=== PATIENT | male | born 1935 | race Asian ===

== ENCOUNTER 2017-12-26 14:39 | Inpatient (IN) | payer OTHER ==
[~2017-12-26] VITALS: Ht 165.1 cm; Wt 63.5 kg
[2017-12-26] MEDS ORDERED: Solu-MEDROL 125mg Inj IVP ONE (14:45)
--- NOTE | 2017-12-26 14:54 | Emergency Room Report ---
History of Present Illness General Chief Complaint: Generalized Weakness Source: Patient, Family Member, EMS Present Illness HPI 82-year-old male, history of asthma, hypertension, throat cancer currently only on radiation, presenting with dizziness, weakness, low blood pressure, shortness of breath. Patient's daughter at bedside, states that patient became acutely ill today, he was supposed to get an MRI to evaluate his throat, and then suddenly just was too weak to get out of the chair. Did not syncopized or lose consciousness. EMS arrived and noted patient's blood pressure to be low, 80/40, which improved with 500 mL of normal saline. Patient also noted to be wheezing, daughter states that he used nebulizer twice today. Patient cleaning of generalized weakness, shortness of breath. No chest pain no abdominal pain. Also complaining of his mild chronic throat pain. Patient states that he has chronic dysphagia however he is still able to eat and drink Patient's daughter states that [facility] Allergies: Coded Allergies: No Known Allergies (Unverified , 12/26/17) Patient History Past Medical History: see triage record Past Surgical History: none Pertinent Family History: none Reviewed Nursing Documentation: PMH: Agreed; PSxH: Agreed Nursing Documentation-PMH Past Medical History: No History, Except For Hx Hypertension: Yes Hx Asthma: Yes Hx Cancer: Yes - THROAT AND PROSTATE Review of Systems All Other Systems: negative except mentioned in HPI Physical Exam Vital Signs Date Time Temp Pulse Resp B/P (MAP) Pulse Ox O2 Delivery O2 Flow Rate FiO2 12/26/17 14:34 110 20 83/52 99 Room Air Sp02 EP Interpretation: abnormal General Appearance: alert, GCS 15, moderate distress, other - sob but speaking in complete sentences, appears tired Head: normocephalic, atraumatic Eyes: bilateral eye normal inspection, bilateral eye PERRL, bilateral eye EOMI ENT: normal ENT inspection, normal pharynx, normal voice, moist mucus membranes Neck: normal inspection, full range of motion, supple Respiratory: respiratory distress, speaking full sentences, wheezing, expiration Cardiovascular #1: tachycardia, edema Cardiovascular #2: 2+ radial (R), 2+ radial (L) Gastrointestinal: normal inspection, non tender, soft, non-distended, no guarding Musculoskeletal: normal inspection, back normal, normal range of motion, non- tender Neurologic: normal inspection, alert, oriented x3, responsive, service establishment attendant III-XII nml as tested, motor strength/tone normal, sensory intact, speech normal Psychiatric: normal inspection, judgement/insight normal, memory normal Skin: normal inspection, normal color, no rash, warm/dry, well hydrated, normal turgor Procedures Critical Care Time Critical Care Time 40 minutes of CC time 82-year-old male with shortness of breath, dizziness VS: Hypotensive tachycardic and hypoxic Differential diagnosis includes ACS, dehydration, COPD or asthma exacerbation, sepsis PLAN: IV access, labs, lactate, troponin, Blood/Urine Cx, Abx, IVF Anticipate admission to Tele vs. [facility] CC time also includes review of labs, review of EMR, discussion with family and paperwork from SNF, d/w hospitalist CC could include dosing of pressors, additional Abx CC time does not include procedures Medical Decision Making Diagnostic Impression: Primary Impression: Asthma exacerbation Additional Impressions: Generalized weakness Renal insufficiency Dehydration ER Course 82-year-old male, weakness and dizziness for 1 day, also found to be wheezing DDX: Dehydration, electrolyte disturbance, sepsis, UTI, pneumonia, asthma/COPD exacerbation, ACS Plan: Obtain labs, ua, EKG, CXR Fluids ER course: Patient giving nebulizer 3, initially hypoxic at 90 on room air now breathing more comfortably, RR 20s given fluids for dehydration renal failure noted given fluids Disposition: Patient is to be xferred to [facility], Dr Martinez Please note that this Emergency Department Report was dictated using [employer] technology software, occasionally this can lead to erroneous entry secondary to interpretation by the dictation equipment. EKG Diagnostic Results EP Interpretation: Yes Rate: Tachycardic Rhythm: NSR ST Segments: No acute changes ASA given to patient: No Rhythm Strip EP Interpretation: Yes Rate: 105 Rhythm: NSR, no PVCs, no ectopy Chest X-ray CXR: Ordered: Yes 1 view Indication: Shortness of breath EP interpretation: Yes Interpretation: No consolidation, no effusion, no PTX, no acute cardiopulmonary disease Impression: No acute disease Electronically signed by Ignacio Connell MD Laboratory Tests Test 12/26/17 14:45 12/26/17 16:37 White Blood Count 6.8 K/UL (4.8-10.8) Red Blood Count 3.38 M/UL (4.70-6.10) L Hemoglobin 10.5 G/DL (14.2-18.0) L Hematocrit 30.0 % (42.0-52.0) L Mean Corpuscular Volume 89 FL (80-99) Mean Corpuscular Hemoglobin 31.1 PG (27.0-31.0) H Mean Corpuscular Hemoglobin Concent 35.0 G/DL (32.0-36.0) Red Cell Distribution Width 13.9 % (11.6-14.8) Platelet Count 350 K/UL (150-450) Mean Platelet Volume 5.2 FL (6.5-10.1) L Neutrophils (%) (Auto) 80.4 % (45.0-75.0) H Lymphocytes (%) (Auto) 11.6 % (20.0-45.0) L Monocytes (%) (Auto) 7.2 % (1.0-10.0) Eosinophils (%) (Auto) 0.2 % (0.0-3.0) Basophils (%) (Auto) 0.6 % (0.0-2.0) Prothrombin Time 10.1 SEC (9.30-11.50) Prothrombin Time INR 1.0 (0.9-1.1) PTT 25 SEC (23-33) Sodium Level 140 MMOL/L (136-145) Potassium Level 4.4 MMOL/L (3.5-5.1) Chloride Level 104 MMOL/L (98-107) Carbon Dioxide Level 30 MMOL/L (21-32) Anion Gap 7 mmol/L (5-15) Blood Urea Nitrogen 30 mg/dL (7-18) H Creatinine 2.1 MG/DL (0.55-1.30) H Estimate Glomerular Filtration Rate mL/min (>60) Glucose Level 139 MG/DL (74-106) H Lactic Acid Level 0.90 mmol/L (0.66-2.22) Calcium Level 9.2 MG/DL (8.5-10.1) Total Bilirubin 0.5 MG/DL (0.2-1.0) Aspartate Amino Transferase (AST) 40 U/L (15-37) H Alanine Aminotransferase (ALT) 22 U/L (12-78) Alkaline Phosphatase 102 U/L (46-116) Troponin I 0.011 ng/mL (0.000-0.056) Pro-B-Type Natriuretic Peptide 480 pg/mL (0-125) H Total Protein 6.8 G/DL (6.4-8.2) Albumin 3.1 G/DL (3.4-5.0) L Globulin 3.7 g/dL Albumin/Globulin Ratio 0.8 (1.0-2.7) L Urine Color Yellow Urine Appearance Clear Urine pH 5 (4.5-8.0) Urine Specific [place] 1.015 (1.005-1.035) Urine Protein 3+ (NEGATIVE) H Urine Glucose (UA) Negative (NEGATIVE) Urine Ketones Negative (NEGATIVE) Urine Occult Blood 1+ (NEGATIVE) H Urine Nitrite Negative (NEGATIVE) Urine Bilirubin Negative (NEGATIVE) Urine Urobilinogen Normal MG/DL (0.0-1.0) Urine Leukocyte Esterase 1+ (NEGATIVE) H Urine RBC 0-2 /HPF (0 - 0) H Urine WBC 0-2 /HPF (0 - 0) Urine Squamous Epithelial Cells None /LPF (NONE/OCC) Urine Bacteria Few /HPF (NONE) Last Vital Signs Date Time Temp Pulse Resp B/P (MAP) Pulse Ox O2 Delivery O2 Flow Rate FiO2 12/26/17 14:34 110 20 83/52 99 Room Air [facility] Condition: Serious RetinoIgnacio M.D. Dec 26, 2017 14:54
[2017-12-26] MEDS: Ipratropium 0.02% Inh Soln 2.5ml UD HHN SCH ×3 (15:01→15:22)
[2017-12-26] MEDS: Albuterol ud Inhalation HHN SCH ×3 (15:01→15:21)
[2017-12-26 15:03] LABS: BASOPHILS % (AUTO) 0.6 % (0.0-2.0); EOSINOPHILS % (AUTO) 0.2 % (0.0-3.0); HEMOGLOBIN 10.5 G/DL (14.2-18.0); LYMPHOCYTES % (AUTO) 11.6 % (20.0-45.0); MEAN CORPUSCULAR VOLUME 89 FL (80-99); MONOCYTES % (AUTO) 7.2 % (1.0-10.0); NEUTROPHILS % (AUTO) 80.4 % (45.0-75.0); PLATELET COUNT 350 K/UL (150-450); RED BLOOD COUNT 3.38 M/UL (4.70-6.10); RED CELL DISTRIBUTION WIDTH 13.9 % (11.6-14.8); WHITE BLOOD COUNT 6.8 K/UL (4.8-10.8)
[2017-12-26 15:10] LABS: ANION GAP 7 mmol/L (5-15); BLOOD UREA NITROGEN 30 mg/dL (7-18); CALCIUM 9.2 MG/DL (8.5-10.1); CARBON DIOXIDE 30 MMOL/L (21-32); CHLORIDE 104 MMOL/L (98-107); CREATININE 2.1 MG/DL (0.55-1.30); POTASSIUM 4.4 MMOL/L (3.5-5.1); SODIUM 140 MMOL/L (136-145)
[2017-12-26 15:11] VITALS: BP 134/65
[2017-12-26 15:21] LABS: ALANINE AMINOTRANSFERASE 22 U/L (12-78); ALBUMIN 3.1 G/DL (3.4-5.0); ALBUMIN/GLOBULIN RATIO 0.8 (1.0-2.7); ALKALINE PHOSPHATASE 102 U/L (46-116); ASPARTATE AMINO TRANSFERASE 40 U/L (15-37); BILIRUBIN,TOTAL 0.5 MG/DL (0.2-1.0)
--- NOTE | 2017-12-26 15:21 | Diagnostic Imaging Report ---
Indication: Dyspnea Comparison: None A single view chest radiograph was obtained. Findings: Lungs are clear. Heart size is normal. Aorta is mildly enlarged with calcified. Bones are slightly osteopenic. IMPRESSION: No acute disease
[2017-12-26] MEDS ORDERED: FLUPHENAZINE DECANOATE IM (16:24)
[2017-12-26] MEDS ORDERED: FERROUS SULFAT325 MG ORAL (16:24)
[2017-12-26] MEDS ORDERED: DOCUSATE SODIU100 MG ORAL (16:24)
[2017-12-26] MEDS ORDERED: QUETIAPINE FUM400 MG ORAL (16:24)
[2017-12-26] MEDS ORDERED: DEPAKOTE250 MG PO (16:24)
[2017-12-26] MEDS ORDERED: FLUOXETINE HCL20 MG ORAL (16:24)
[2017-12-26 17:05] LABS: APPEARANCE,URINE CLEAR; BILIRUBIN, URINE NEGATIVE (NEGATIVE); GLUCOSE, URINE (UA) NEGATIVE (NEGATIVE); KETONES,URINE NEGATIVE (NEGATIVE); LEUKOCYTE ESTERASE ,URINE 1+ (NEGATIVE); NITRITE,URINE NEGATIVE (NEGATIVE); PH,URINE 5 (4.5-8.0); PROTEIN,URINE 3+ (NEGATIVE); UROBILINOGEN,URINE NORMAL MG/DL (0.0-1.0)
[2017-12-26 17:11] LABS: COLOR,URINE YELLOW
[2017-12-26] MEDS ORDERED: LISINOPRIL40 MG ORAL (17:59)
[2017-12-26] MEDS ORDERED: SPIRIVA18 MCG INH (17:59)
[2017-12-26] MEDS ORDERED: BICALUTAMIDE50 MG ORAL (17:59)
[2017-12-26] MEDS ORDERED: TAMSULOSIN HCL0.4 MG ORAL (17:59)
[2017-12-26] MEDS ORDERED: METOPROLOL SUCC25 MG ORAL (17:59)
[2017-12-26] MEDS ORDERED: PROSCAR5 MG ORAL (17:59)
[2017-12-26] MEDS ORDERED: AMLODIPINE BESY10 MG ORAL (17:59)
[2017-12-26] MEDS ORDERED: VENTOLIN HFA18 GM INH (17:59)
[2017-12-26 18:08] VITALS: BP 107/45
[2017-12-26 19:22] VITALS: BP 110/44
[2017-12-26 20:57] VITALS: BP 115/44
[2017-12-27] VITALS (8 sets, daily range): BP systolic 115–149; BP diastolic 58–65
[2017-12-27] MEDS ORDERED: Miralax 17gm pkt ORAL PRN (06:30)
[2017-12-27] MEDS ORDERED: Morphine Sulfate 4mg/ml Inj IVP PRN ×2 (06:30→18:30)
[2017-12-27] MEDS ORDERED: Nitroglycerin Subl 0.4mg tab SL PRN ×2 (06:30→15:30)
[2017-12-27] MEDS ORDERED: Albuterol/Ipratropium 3ml neb HHN PRN (06:30)
[2017-12-27] MEDS ORDERED: Heparin 5000 units/ml inj SUBQ SCH (09:00)
[2017-12-27] MEDS ORDERED: Tamsulosin 0.4mg cap ORAL SCH (09:00)
[2017-12-27] MEDS ORDERED: Cefepime HCl 1 GM in D5W 55 ML IVPB SCH (09:00)
[2017-12-27] MEDS ORDERED: Vancomycin 1 GM in D5W 275 ML IVPB SCH (10:00)
--- NOTE | 2017-12-27 11:06 | Diagnostic Imaging Report ---
Indication: Dyspnea Technique: One view of the chest Comparison: 12/26/2017 Findings: Lungs and pleural spaces are clear. Heart size is normal. The aorta is calcified. There is no significant interim change Impression: No acute process
--- NOTE | 2017-12-27 12:02 | History and Physical ---
History of Present Illness General Date patient seen: Dec 27, 2017 Reason for Hospitalization: Generalized Weakness Present Illness HPI 82-year-old male, history of asthma, , throat cancer currently only on radiation , presenting with dizziness, weakness, low blood pressure, shortness of breath and fever. He was too weak to get out of the chair. His blood pressure in the filed was 80/40, which improved with 500 mL of normal saline. Patient also noted to be wheezing, daughter states that he used nebulizer twice today. He also has chronic dysphagia however he is still able to eat and drink. Pt is admitted to telemetry for possible septic and septic shock. Allergies: Coded Allergies: No Known Allergies (Unverified , 12/26/17) Medication History Scheduled Amlodipine Besylate* (Amlodipine Besylate*), 10 MG ORAL DAILY, (Reported) Bicalutamide* (Bicalutamide*), 50 MG ORAL BID, (Reported) Finasteride* (Proscar*), 5 MG ORAL DAILY, (Reported) Lisinopril* (Lisinopril*), 40 MG ORAL DAILY, (Reported) Metoprolol Succinate* (Metoprolol Succinate*), 25 MG ORAL DAILY, (Reported) Tamsulosin Hcl (Tamsulosin Hcl*), 0.4 MG ORAL DAILY, (Reported) Tiotropium Jackson* (Spiriva*), 2 PUFF INH DAILY, (Reported) Scheduled PRN Albuterol Sulfate (Ventolin Hfa), 1 PUFF INH EVERY 6 HOURS PRN for Shortness of Breath, (Reported) Discontinued Medications Divalproex Sodium* (Depakote*), 500 MG PO THREE TIMES A DAY, (Reported) Discontinued Reason: Pt stopped taking med Docusate Sodium* (Docusate Sodium*), 100 MG ORAL TWICE A DAY PRN for Constipation, (Reported) Discontinued Reason: Pt stopped taking med Ferrous Sulfate* (Ferrous Sulfate*), 325 MG ORAL DAILY, (Reported) Discontinued Reason: Pt stopped taking med Fluoxetine Hcl* (Fluoxetine Hcl*), 20 MG ORAL DAILY, (Reported) Discontinued Reason: Pt stopped taking med Fluphenazine Decanoate (Fluphenazine Decanoate), 125 MG IM EVERY 2 WEEKS, ( Reported) Discontinued Reason: Pt stopped taking med Quetiapine Fumarate* (Quetiapine Fumarate*), 200 MG ORAL BEDTIME, (Reported) Discontinued Reason: Pt stopped taking med Patient History Healthcare decision maker Resuscitation status Full Code Advanced Directive on File No Past Medical/Surgical History Past Medical/Surgical History: (1) Throat cancer (2) COPD (chronic obstructive pulmonary disease) Review of Systems Constitutional: Reports: no symptoms Eye: Reports: no symptoms Physical Exam General Appearance: WD/WN Lines, tubes and drains: peripheral, central line HEENT: normocephalic, atraumatic Neck: non-tender, normal alignment Respiratory/Chest: chest wall non-tender, crackles/rales Breasts: no masses Cardiovascular/Chest: normal peripheral pulses Genitourinary/Rectal: normal genital exam, normal rectal exam, normal prostate exam Extremities: non-tender Last 24 Hour Vital Signs Date Time Temp Pulse Resp B/P (MAP) Pulse Ox O2 Delivery O2 Flow Rate FiO2 12/27/17 09:53 77 18 Room Air 21 12/27/17 08:00 98.1 73 20 115/64 98 Room Air 21 98.1 12/27/17 04:00 98.1 75 22 116/63 98 Room Air 98.1 12/27/17 04:00 73 12/27/17 01:25 97.7 81 23 130/62 97 Room Air 97.7 12/27/17 01:20 98.3 76 25 126/60 95 Room Air 21 98.3 12/27/17 01:12 98.3 76 25 126/60 95 Room Air 21 98.3 12/27/17 00:10 98.7 70 24 121/58 97 Room Air 21 98.7 12/26/17 20:57 98.8 89 25 115/44 95 Room Air 21 98.8 12/26/17 19:22 98.9 86 35 110/44 94 Room Air 21 98.9 12/26/17 18:08 93 30 107/45 95 Room Air 12/26/17 16:59 99.7 12/26/17 16:01 99.7 99.7 12/26/17 15:41 110 27 100 Room Air 21 12/26/17 15:23 109 28 100 Room Air 21 12/26/17 15:23 102.4 12/26/17 15:23 109 28 100 Room Air 21 12/26/17 15:13 106 27 100 Room Air 21 12/26/17 15:11 102.4 110 24 134/65 100 Room Air 102.4 12/26/17 15:11 105 30 100 Room Air 21 12/26/17 15:05 105 25 Room Air 21 12/26/17 15:02 105 25 96 Room Air 21 12/26/17 14:34 110 20 83/52 99 Room Air Intake and Output 12/26/17 12/27/17 19:00 07:00 Intake Total 1000 ml Balance 1000 ml Intake Oral 0 ml IV Total 1000 ml Laboratory Tests Test 12/26/17 14:45 12/26/17 16:37 White Blood Count 6.8 K/UL (4.8-10.8) Red Blood Count 3.38 M/UL (4.70-6.10) L Hemoglobin 10.5 G/DL (14.2-18.0) L Hematocrit 30.0 % (42.0-52.0) L Mean Corpuscular Volume 89 FL (80-99) Mean Corpuscular Hemoglobin 31.1 PG (27.0-31.0) H Mean Corpuscular Hemoglobin Concent 35.0 G/DL (32.0-36.0) Red Cell Distribution Width 13.9 % (11.6-14.8) Platelet Count 350 K/UL (150-450) Mean Platelet Volume 5.2 FL (6.5-10.1) L Neutrophils (%) (Auto) 80.4 % (45.0-75.0) H Lymphocytes (%) (Auto) 11.6 % (20.0-45.0) L Monocytes (%) (Auto) 7.2 % (1.0-10.0) Eosinophils (%) (Auto) 0.2 % (0.0-3.0) Basophils (%) (Auto) 0.6 % (0.0-2.0) Prothrombin Time 10.1 SEC (9.30-11.50) Prothromb Time International Ratio 1.0 (0.9-1.1) Activated Partial Thromboplast Time 25 SEC (23-33) Sodium Level 140 MMOL/L (136-145) Potassium Level 4.4 MMOL/L (3.5-5.1) Chloride Level 104 MMOL/L (98-107) Carbon Dioxide Level 30 MMOL/L (21-32) Anion Gap 7 mmol/L (5-15) Blood Urea Nitrogen 30 mg/dL (7-18) H Creatinine 2.1 MG/DL (0.55-1.30) H Estimat Glomerular Filtration Rate mL/min (>60) Glucose Level 139 MG/DL (74-106) H Lactic Acid Level 0.90 mmol/L (0.66-2.22) Calcium Level 9.2 MG/DL (8.5-10.1) Total Bilirubin 0.5 MG/DL (0.2-1.0) Aspartate Amino Transf (AST/SGOT) 40 U/L (15-37) H Alanine Aminotransferase (ALT/SGPT) 22 U/L (12-78) Alkaline Phosphatase 102 U/L (46-116) Troponin I 0.011 ng/mL (0.000-0.056) Pro-B-Type Natriuretic Peptide 480 pg/mL (0-125) H Total Protein 6.8 G/DL (6.4-8.2) Albumin 3.1 G/DL (3.4-5.0) L Globulin 3.7 g/dL Albumin/Globulin Ratio 0.8 (1.0-2.7) L Urine Color Yellow Urine Appearance Clear Urine pH 5 (4.5-8.0) Urine Specific [place] 1.015 (1.005-1.035) Urine Protein 3+ (NEGATIVE) H Urine Glucose (UA) Negative (NEGATIVE) Urine Ketones Negative (NEGATIVE) Urine Occult Blood 1+ (NEGATIVE) H Urine Nitrite Negative (NEGATIVE) Urine Bilirubin Negative (NEGATIVE) Urine Urobilinogen Normal MG/DL (0.0-1.0) Urine Leukocyte Esterase 1+ (NEGATIVE) H Urine RBC 0-2 /HPF (0 - 0) H Urine WBC 0-2 /HPF (0 - 0) Urine Squamous Epithelial Cells None /LPF (NONE/OCC) Urine Bacteria Few /HPF (NONE) Height (Feet): 5 Height (Inches): 5.00 Weight (Pounds): 140 Medications Current Medications Medications (Trade) Dose Ordered Sig/Karen Route PRN Reason Start Time Stop Time Status Last Admin Dose Admin Acetaminophen (Tylenol) 650 mg Q4H PRN ORAL fever 12/27/17 06:30 01/26/18 06:29 Albuterol/ Ipratropium (Albuterol/ Ipratropium) 3 ml Q4H PRN HHN Shortness of Breath 12/27/17 06:30 01/01/18 06:29 Cefepime HCl 1 gm/ Dextrose 55 ml @ 110 mls/hr Q24H IVPB 12/27/17 09:00 01/03/18 08:59 12/27/17 09:06 Finasteride (Proscar) 5 mg DAILY ORAL 12/27/17 09:00 01/26/18 08:59 12/27/17 09:06 Heparin Sodium (Porcine) (Heparin 5000 units/ml) 5,000 units EVERY 12 HOURS SUBQ 12/27/17 09:00 01/26/18 08:59 12/27/17 09:07 Morphine Sulfate (Morphine Sulfate) 2 mg Q4H PRN IVP Moderate Pain (Pain Scale 4-6) 12/27/17 06:30 01/03/18 06:29 Nitroglycerin (Ntg) 0.4 mg Q5M PRN SL Prn Chest Pain 12/27/17 06:30 01/26/18 06:29 Ondansetron HCl (Zofran) 4 mg Q6H PRN IVP Nausea & Vomiting 12/27/17 06:30 01/26/18 06:29 Polyethylene Glycol (Miralax) 17 gm DAILYPRN PRN ORAL Constipation 12/27/17 06:30 01/26/18 06:29 Tamsulosin HCl (Flomax) 0.4 mg DAILY ORAL 12/27/17 09:00 01/26/18 08:59 12/27/17 09:06 Temazepam (Restoril) 15 mg HSPRN PRN ORAL Insomnia 12/27/17 06:30 01/03/18 06:29 Vancomycin HCl (Vanco rx to dose) 1 ea DAILY PRN MISC Per rx protocol 12/27/17 07:30 01/26/18 07:29 Vancomycin HCl 1 gm/Dextrose 275 ml @ 183.3 mls/ hr Q24H IVPB 12/27/17 10:00 01/01/18 09:59 12/27/17 10:52 Assessment/Plan Problem List: (1) Sepsis ICD Codes: A41.9 - Sepsis, unspecified organism SNOMED: 42608261 (2) COPD (chronic obstructive pulmonary disease) ICD Codes: J44.9 - Chronic obstructive pulmonary disease, unspecified SNOMED: 99778773 (3) Throat cancer ICD Codes: C14.0 - Malignant neoplasm of pharynx, unspecified SNOMED: 369874600 (4) Asthma exacerbation ICD Codes: J45.901 - Unspecified asthma with (acute) exacerbation SNOMED: 753765994 Assessment/Plan iv fluids iv hydration respiratory treatment check cultures symptomatic treatment Priya Monzon MD Dec 27, 2017 12:02
--- NOTE | 2017-12-27 16:25 | Cardiology Report ---
APPROVED REPORT EKG Measurement Heart [id number] Sinus tachycardia Otherwise normal ECG
[2017-12-27] MEDS: Heparin 5000 units/ml inj SUBQ SCH (20:25)
[2017-12-27] MEDS: Albuterol/Ipratropium 3ml neb HHN PRN (22:21)
[2017-12-27 22:33] LABS: APPEARANCE,URINE CLEAR; BILIRUBIN, URINE NEGATIVE (NEGATIVE); COLOR,URINE PALE YELLOW; GLUCOSE, URINE (UA) NEGATIVE (NEGATIVE); KETONES,URINE NEGATIVE (NEGATIVE); LEUKOCYTE ESTERASE ,URINE NEGATIVE (NEGATIVE); NITRITE,URINE NEGATIVE (NEGATIVE); PH,URINE 5 (4.5-8.0); PROTEIN,URINE 2+ (NEGATIVE); UROBILINOGEN,URINE NORMAL MG/DL (0.0-1.0)
[2017-12-28] VITALS: BP 136/65
[2017-12-28 04:00] VITALS: BP 121/59
[2017-12-28] MEDS ORDERED: Miralax 17gm pkt ORAL PRN (06:30)
[2017-12-28 08:00] VITALS: BP 113/61
[2017-12-28] MEDS: Tamsulosin 0.4mg cap ORAL SCH (08:39)
[2017-12-28] MEDS: Heparin 5000 units/ml inj SUBQ SCH ×2 (08:41→20:46)
[2017-12-28 08:49] LABS: BASOPHILS % (AUTO) 0.6 % (0.0-2.0); EOSINOPHILS % (AUTO) 0.2 % (0.0-3.0); HEMATOCRIT 28.2 % (42.0-52.0); HEMOGLOBIN 9.4 G/DL (14.2-18.0); LYMPHOCYTES % (AUTO) 23.3 % (20.0-45.0); MEAN CORPUSCULAR VOLUME 88 FL (80-99); NEUTROPHILS % (AUTO) 64.9 % (45.0-75.0); PLATELET COUNT 296 K/UL (150-450); RED CELL DISTRIBUTION WIDTH 13.7 % (11.6-14.8); WHITE BLOOD COUNT 5.6 K/UL (4.8-10.8)
[2017-12-28 09:55] LABS: ALANINE AMINOTRANSFERASE 26 U/L (12-78); ALBUMIN 2.7 G/DL (3.4-5.0); ALBUMIN/GLOBULIN RATIO 0.8 (1.0-2.7); ALKALINE PHOSPHATASE 85 U/L (46-116); ANION GAP 5 mmol/L (5-15); ASPARTATE AMINO TRANSFERASE 46 U/L (15-37); BILIRUBIN,TOTAL 0.2 MG/DL (0.2-1.0); BLOOD UREA NITROGEN 32 mg/dL (7-18); CALCIUM 8.9 MG/DL (8.5-10.1); CARBON DIOXIDE 30 MMOL/L (21-32); CHLORIDE 106 MMOL/L (98-107); CREATININE 1.9 MG/DL (0.55-1.30); POTASSIUM 3.7 MMOL/L (3.5-5.1); SODIUM 141 MMOL/L (136-145)
[2017-12-28] MEDS: Cefepime HCl 1 GM in D5W 55 ML IVPB SCH (09:55)
[2017-12-28] MEDS: Vancomycin 1 GM in D5W 275 ML IVPB SCH (11:36)
[2017-12-28] MEDS: Albuterol/Ipratropium 3ml neb HHN PRN (11:50)
[2017-12-28 12:20] VITALS: BP 142/116
--- NOTE | 2017-12-28 14:55 | Pulmonology Progress Note ---
Assessment/Plan Problems: (1) Sepsis (2) COPD (chronic obstructive pulmonary disease) (3) Throat cancer (4) Asthma exacerbation Assessment/Plan check cultures sputum for c/s Swallow study noted ENT notified symptoamtic treatment all meds and labs reviewed Subjective ROS Limited/Unobtainable: No Constitutional: Reports: no symptoms HEENT: Repors: no symptoms Respiratory: Reports: no symptoms Allergies: Coded Allergies: No Known Allergies (Unverified , 12/26/17) Objective Last 24 Hour Vital Signs Date Time Temp Pulse Resp B/P (MAP) Pulse Ox O2 Delivery O2 Flow Rate FiO2 12/28/17 12:20 97.5 96 21 142/116 Room Air 97.5 12/28/17 11:50 21 12/28/17 11:50 80 20 95 Room Air 21 12/28/17 11:50 80 18 Room Air 21 12/28/17 08:00 97.8 88 18 113/61 99 97.8 12/28/17 04:00 98.4 84 20 121/59 96 98.4 12/28/17 00:00 98.7 84 20 136/65 96 98.7 12/27/17 22:31 107 24 98 Room Air 21 12/27/17 22:21 101 24 95 Room Air 21 12/27/17 20:00 98.7 75 20 116/64 96 98.7 12/27/17 19:51 78 18 Room Air 21 12/27/17 16:00 98.2 74 19 149/65 95 98.2 74 Intake and Output 12/27/17 12/28/17 19:00 07:00 Intake Total 720 ml 240 ml Output Total 600 ml Balance 720 ml -360 ml Intake Oral 720 ml 240 ml Output Urine Total 600 ml # Voids 3 General Appearance: WD/WN HEENT: normocephalic, atraumatic Respiratory/Chest: chest wall non-tender, lungs clear Cardiovascular: normal peripheral pulses Abdomen: no organomegaly Genitourinary: normal external genitalia Skin: no rash Microbiology Date/Time Source Procedure Growth Status 12/26/17 15:00 Blood Blood Culture - Preliminary NO GROWTH AFTER 24 HOURS Resulted 12/26/17 14:45 Blood Blood Culture - Preliminary NO GROWTH AFTER 24 HOURS Resulted Laboratory Tests 12/27/17 20:05: Urine Color Pale yellow, Urine Appearance Clear, Urine pH 5, Urine Specific [place] 1.015, Urine Protein 2+H, Urine Glucose (UA) Negative, Urine Ketones Negative, Urine Occult Blood 1+H, Urine Nitrite Negative, Urine Bilirubin Negative, Urine Urobilinogen Normal, Urine Leukocyte Esterase Negative, Urine RBC 0-2H, Urine WBC 0-2, Urine Squamous Epithelial Cells None, Urine Bacteria None 12/28/17 07:30: White Blood Count 5.6, Red Blood Count 3.20L, Hemoglobin 9.4L, Hematocrit 28.2L , Mean Corpuscular Volume 88, Mean Corpuscular Hemoglobin 29.6, Mean Corpuscular Hemoglobin Concent 33.5, Red Cell Distribution Width 13.7, Platelet Count 296, Mean Platelet Volume 5.7L, Neutrophils (%) (Auto) 64.9, Lymphocytes ( %) (Auto) 23.3, Monocytes (%) (Auto) 11.0H, Eosinophils (%) (Auto) 0.2, Basophils (%) (Auto) 0.6, Sodium Level 141, Potassium Level 3.7, Chloride Level 106, Carbon Dioxide Level 30, Anion Gap 5, Blood Urea Nitrogen 32H, Creatinine 1.9H, Estimat Glomerular Filtration Rate , Glucose Level 101, Calcium Level 8.9 , Total Bilirubin 0.2, Aspartate Amino Transf (AST/SGOT) 46H, Alanine Aminotransferase (ALT/SGPT) 26, Alkaline Phosphatase 85, Total Protein 6.3L, Albumin 2.7L, Globulin 3.6, Albumin/Globulin Ratio 0.8L Current Medications Medications (Trade) Dose Ordered Sig/Karen Route PRN Reason Start Time Stop Time Status Last Admin Dose Admin Acetaminophen (Tylenol) 650 mg Q4H PRN ORAL fever 12/27/17 18:30 01/26/18 06:29 Albuterol/ Ipratropium (Albuterol/ Ipratropium) 3 ml Q4H PRN HHN Shortness of Breath 12/27/17 18:30 01/01/18 06:29 12/28/17 11:50 Cefepime HCl 1 gm/ Dextrose 55 ml @ 110 mls/hr Q24H IVPB 12/28/17 09:00 01/03/18 08:59 12/28/17 09:55 Finasteride (Proscar) 5 mg DAILY ORAL 12/28/17 09:00 01/26/18 08:59 12/28/17 08:39 Heparin Sodium (Porcine) (Heparin 5000 units/ml) 5,000 units EVERY 12 HOURS SUBQ 12/27/17 21:00 01/26/18 08:59 12/28/17 08:41 Morphine Sulfate (Morphine Sulfate) 2 mg Q4H PRN IVP Moderate Pain (Pain Scale 4-6) 12/27/17 18:30 01/03/18 06:29 Nitroglycerin (Ntg) 0.4 mg Q5M PRN SL Prn Chest Pain 12/27/17 15:30 01/26/18 06:29 Ondansetron HCl (Zofran) 4 mg Q6H PRN IVP Nausea & Vomiting 12/27/17 18:30 01/26/18 06:29 Polyethylene Glycol (Miralax) 17 gm DAILYPRN PRN ORAL Constipation 12/28/17 06:30 01/26/18 06:29 Tamsulosin HCl (Flomax) 0.4 mg DAILY ORAL 12/28/17 09:00 01/26/18 08:59 12/28/17 08:39 Temazepam (Restoril) 15 mg HSPRN PRN ORAL Insomnia 12/28/17 06:30 01/03/18 06:29 Vancomycin HCl (Vanco rx to dose) 1 ea DAILY PRN MISC Per rx protocol 12/28/17 09:00 01/26/18 07:29 Vancomycin HCl 1 gm/Dextrose 275 ml @ 183.3 mls/ hr Q24H IVPB 12/28/17 10:00 01/01/18 09:59 12/28/17 11:36 Priya Monzon MD Dec 28, 2017 14:55
[2017-12-28 16:00] VITALS: BP 140/68
[2017-12-28 20:00] VITALS: BP 112/67
--- NOTE | 2017-12-28 22:36 | Consultation ---
History of Present Illness General Chief Complaint: Generalized Weakness Present Illness HPI the pt is 82 yo male with hx of mmp and hx of depression and cognitive impairment. The pt has stopped taking depakote and prozac/ the pt was anxious and was attempting to come out of bed. per nurse the pt can walk. the pt is withdrawn, he follows command. the pt does not endorse psychotic sxs. Allergies: Coded Allergies: No Known Allergies (Unverified , 12/26/17) Medication History Scheduled Amlodipine Besylate* (Amlodipine Besylate*), 10 MG ORAL DAILY, (Reported) Bicalutamide* (Bicalutamide*), 50 MG ORAL BID, (Reported) Finasteride* (Proscar*), 5 MG ORAL DAILY, (Reported) Lisinopril* (Lisinopril*), 40 MG ORAL DAILY, (Reported) Metoprolol Succinate* (Metoprolol Succinate*), 25 MG ORAL DAILY, (Reported) Tamsulosin Hcl (Tamsulosin Hcl*), 0.4 MG ORAL DAILY, (Reported) Tiotropium [place]* (Spiriva*), 2 PUFF INH DAILY, (Reported) Scheduled PRN Albuterol Sulfate (Ventolin Hfa), 1 PUFF INH EVERY 6 HOURS PRN for Shortness of Breath, (Reported) Discontinued Medications Divalproex Sodium* (Depakote*), 500 MG PO THREE TIMES A DAY, (Reported) Discontinued Reason: Pt stopped taking med Docusate Sodium* (Docusate Sodium*), 100 MG ORAL TWICE A DAY PRN for Constipation, (Reported) Discontinued Reason: Pt stopped taking med Ferrous Sulfate* (Ferrous Sulfate*), 325 MG ORAL DAILY, (Reported) Discontinued Reason: Pt stopped taking med Fluoxetine Hcl* (Fluoxetine Hcl*), 20 MG ORAL DAILY, (Reported) Discontinued Reason: Pt stopped taking med Fluphenazine Decanoate (Fluphenazine Decanoate), 125 MG IM EVERY 2 WEEKS, ( Reported) Discontinued Reason: Pt stopped taking med Quetiapine Fumarate* (Quetiapine Fumarate*), 200 MG ORAL BEDTIME, (Reported) Discontinued Reason: Pt stopped taking med Patient History History Provided By: Patient, Medical Record Healthcare decision maker Resuscitation status Full Code Advanced Directive on File No Review of Systems Psychiatric: Reports: prior hx, anxiety, depressed feelings Physical Exam General Appearance: no apparent distress, alert, confused, agitated Last 24 Hour Vital Signs Date Time Temp Pulse Resp B/P (MAP) Pulse Ox O2 Delivery O2 Flow Rate FiO2 12/28/17 20:00 98.9 106 19 112/67 98 Room Air 98.9 12/28/17 19:45 80 18 Room Air 21 12/28/17 16:00 97.9 94 19 140/68 95 Room Air 97.9 12/28/17 12:20 97.5 96 21 142/116 Room Air 97.5 12/28/17 11:50 21 12/28/17 11:50 80 20 95 Room Air 21 12/28/17 11:50 80 18 Room Air 21 12/28/17 08:00 97.8 88 18 113/61 99 97.8 12/28/17 04:00 98.4 84 20 121/59 96 98.4 12/28/17 00:00 98.7 84 20 136/65 96 98.7 Intake and Output 12/27/17 12/28/17 19:00 07:00 Intake Total 720 ml 240 ml Output Total 600 ml Balance 720 ml -360 ml Intake Oral 720 ml 240 ml Output Urine Total 600 ml # Voids 3 Laboratory Tests Test 12/28/17 07:30 White Blood Count 5.6 K/UL (4.8-10.8) Red Blood Count 3.20 M/UL (4.70-6.10) L Hemoglobin 9.4 G/DL (14.2-18.0) L Hematocrit 28.2 % (42.0-52.0) L Mean Corpuscular Volume 88 FL (80-99) Mean Corpuscular Hemoglobin 29.6 PG (27.0-31.0) Mean Corpuscular Hemoglobin Concent 33.5 G/DL (32.0-36.0) Red Cell Distribution Width 13.7 % (11.6-14.8) Platelet Count 296 K/UL (150-450) Mean Platelet Volume 5.7 FL (6.5-10.1) L Neutrophils (%) (Auto) 64.9 % (45.0-75.0) Lymphocytes (%) (Auto) 23.3 % (20.0-45.0) Monocytes (%) (Auto) 11.0 % (1.0-10.0) H Eosinophils (%) (Auto) 0.2 % (0.0-3.0) Basophils (%) (Auto) 0.6 % (0.0-2.0) Sodium Level 141 MMOL/L (136-145) Potassium Level 3.7 MMOL/L (3.5-5.1) Chloride Level 106 MMOL/L (98-107) Carbon Dioxide Level 30 MMOL/L (21-32) Anion Gap 5 mmol/L (5-15) Blood Urea Nitrogen 32 mg/dL (7-18) H Creatinine 1.9 MG/DL (0.55-1.30) H Estimat Glomerular Filtration Rate mL/min (>60) Glucose Level 101 MG/DL (74-106) Calcium Level 8.9 MG/DL (8.5-10.1) Total Bilirubin 0.2 MG/DL (0.2-1.0) Aspartate Amino Transf (AST/SGOT) 46 U/L (15-37) H Alanine Aminotransferase (ALT/SGPT) 26 U/L (12-78) Alkaline Phosphatase 85 U/L (46-116) Total Protein 6.3 G/DL (6.4-8.2) L Albumin 2.7 G/DL (3.4-5.0) L Globulin 3.6 g/dL Albumin/Globulin Ratio 0.8 (1.0-2.7) L Height (Feet): 5 Height (Inches): 5.00 Weight (Pounds): 140 Medications Current Medications Medications (Trade) Dose Ordered Sig/Karen Route PRN Reason Start Time Stop Time Status Last Admin Dose Admin Acetaminophen (Tylenol) 650 mg Q4H PRN ORAL fever 12/27/17 18:30 01/26/18 06:29 Albuterol/ Ipratropium (Albuterol/ Ipratropium) 3 ml Q4H PRN HHN Shortness of Breath 12/27/17 18:30 01/01/18 06:29 12/28/17 11:50 Cefepime HCl 1 gm/ Dextrose 55 ml @ 110 mls/hr Q24H IVPB 12/28/17 09:00 01/03/18 08:59 12/28/17 09:55 Finasteride (Proscar) 5 mg DAILY ORAL 12/28/17 09:00 01/26/18 08:59 12/28/17 08:39 Heparin Sodium (Porcine) (Heparin 5000 units/ml) 5,000 units EVERY 12 HOURS SUBQ 12/27/17 21:00 01/26/18 08:59 12/28/17 20:46 Morphine Sulfate (Morphine Sulfate) 2 mg Q4H PRN IVP Moderate Pain (Pain Scale 4-6) 12/27/17 18:30 01/03/18 06:29 Nitroglycerin (Ntg) 0.4 mg Q5M PRN SL Prn Chest Pain 12/27/17 15:30 01/26/18 06:29 Ondansetron HCl (Zofran) 4 mg Q6H PRN IVP Nausea & Vomiting 12/27/17 18:30 01/26/18 06:29 Polyethylene Glycol (Miralax) 17 gm DAILYPRN PRN ORAL Constipation 12/28/17 06:30 01/26/18 06:29 Tamsulosin HCl (Flomax) 0.4 mg DAILY ORAL 12/28/17 09:00 01/26/18 08:59 12/28/17 08:39 Temazepam (Restoril) 15 mg HSPRN PRN ORAL Insomnia 12/28/17 06:30 01/03/18 06:29 Vancomycin HCl (Vanco rx to dose) 1 ea DAILY PRN MISC Per rx protocol 12/28/17 09:00 01/26/18 07:29 Vancomycin HCl 1 gm/Dextrose 275 ml @ 183.3 mls/ hr Q24H IVPB 12/28/17 10:00 01/01/18 09:59 12/28/17 11:36 Assessment/Plan Assessment/Plan dementia with behavioral dist zyprexa 2.5mg bid/prn provided Lay Foley M.D. Dec 28, 2017 22:36
[2017-12-29] VITALS: BP 127/70
[2017-12-29 04:00] VITALS: BP 118/66
[2017-12-29] MEDS: Cefepime HCl 1 GM in D5W 55 ML IVPB SCH (08:51)
[2017-12-29] MEDS: Tamsulosin 0.4mg cap ORAL SCH (08:51)
[2017-12-29] MEDS: Heparin 5000 units/ml inj SUBQ SCH ×2 (08:52→20:49)
[2017-12-29 09:00] VITALS: BP 121/69
--- NOTE | 2017-12-29 09:23 | General Progress Note ---
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 He is in the beginning of XRT with dysphagia, mild thrush on oral exam and dehydration. Assessment/Plan Pt is under care elsewhere-not sure if he is going back to MD treating his cancer or transferring here. His daughter is getting information re type of cancer and MD taking care of him previously. I will put in order for Fiberoptic laryngoscopy consent-once signed will be back tomorrow afternoon to do. I agree with Speech Path for swallowing study. If I get the name of his Oncologist-I will call re care and past history. Subjective Date patient seen: Dec 29, 2017 Time patient seen: 09:00 ROS Limited/Unobtainable: No Constitutional: Reports: malaise, weakness HEENT: Reports: throat swelling, mouth pain, mouth swelling Allergies: Coded Allergies: No Known Allergies (Unverified , 12/26/17) Subjective ENT-Initial consult I have been asked to see pt re dysphagia S/P 5 XRT for recurrent throat cancer- being followed and cared for at [facility]-unknown MD at this time. Swallowing study yesterday by Speech Pathology indicates aspiration and suggest barium swallow by Radiology and Speech path. Objective Last 24 Hour Vital Signs Date Time Temp Pulse Resp B/P (MAP) Pulse Ox O2 Delivery O2 Flow Rate FiO2 12/29/17 09:00 98.0 102 20 121/69 96 98.0 12/29/17 08:10 79 18 Room Air 21 12/29/17 04:00 98.5 99 19 118/66 97 Room Air 98.5 12/29/17 00:00 98.6 95 19 127/70 96 Room Air 98.6 12/28/17 20:00 98.9 106 19 112/67 98 Room Air 98.9 12/28/17 19:45 80 18 Room Air 21 12/28/17 16:00 97.9 94 19 140/68 95 Room Air 97.9 12/28/17 12:20 97.5 96 21 142/116 Room Air 97.5 12/28/17 11:50 21 12/28/17 11:50 80 20 95 Room Air 21 12/28/17 11:50 80 18 Room Air 21 Intake and Output 12/28/17 12/29/17 19:00 07:00 Intake Total 120 ml Balance 120 ml Intake Oral 120 ml # Voids 4 2 # Bowel Movements 1 Height (Feet): 5 Height (Inches): 5.00 Weight (Pounds): 140 EENT: TMs normal, pharyngeal erythema - mild swelling and redness with white covering suggestive of thrush, other Abdomen: normal bowel sounds Edema: no edema noted Arm (L), no edema noted Arm (R), no edema noted Leg (L), no edema noted Leg (R), no edema noted Pedal (L), no edema noted Pedal (R), no edema noted Generalized Lymphatic: normal anterior cervical (L), normal anterior cervical (R), normal posterior cervical (L), normal posterior cervical (R), normal submandibular (L) , normal submandibular (R), normal supraclavicular (L), normal supraclavicular ( R) Objective Mouth as described above-consistnet with XRT associated thrush and dry mouth BILL ROBLERO Dec 29, 2017 09:23
[2017-12-29] MEDS: Vancomycin 1 GM in D5W 275 ML IVPB SCH (10:04)
[2017-12-29 12:00] VITALS: BP 144/80
[2017-12-29] MEDS ORDERED: OLANZapine 2.5mg tab ORAL PRN (12:00)
--- NOTE | 2017-12-29 14:34 | Pulmonology Progress Note ---
Assessment/Plan Problems: (1) Sepsis (2) COPD (chronic obstructive pulmonary disease) (3) Throat cancer (4) Asthma exacerbation Assessment/Plan check cultures sputum for c/s all cultures are so far negative Swallow study noted ENT note appreciated symptomatic treatment all meds and labs reviewed Subjective ROS Limited/Unobtainable: No Constitutional: Reports: no symptoms HEENT: Repors: no symptoms Respiratory: Reports: no symptoms Allergies: Coded Allergies: No Known Allergies (Unverified , 12/26/17) Objective Last 24 Hour Vital Signs Date Time Temp Pulse Resp B/P (MAP) Pulse Ox O2 Delivery O2 Flow Rate FiO2 12/29/17 12:00 98.2 89 20 144/80 98 98.2 12/29/17 09:00 98.0 102 20 121/69 96 98.0 12/29/17 08:10 79 18 Room Air 21 12/29/17 04:00 98.5 99 19 118/66 97 Room Air 98.5 12/29/17 00:00 98.6 95 19 127/70 96 Room Air 98.6 12/28/17 20:00 98.9 106 19 112/67 98 Room Air 98.9 12/28/17 19:45 80 18 Room Air 21 12/28/17 16:00 97.9 94 19 140/68 95 Room Air 97.9 Intake and Output 12/28/17 12/29/17 19:00 07:00 Intake Total 120 ml Balance 120 ml Intake Oral 120 ml # Voids 4 2 # Bowel Movements 1 Objective General Appearance: cachectic HEENT: normocephalic, atraumatic Respiratory/Chest: chest wall non-tender, lungs clear Cardiovascular: normal peripheral pulses, normal rate, regular rhythm Abdomen: normal bowel sounds, soft, non tender Genitourinary: normal external genitalia Extremities: no cyanosis Skin: no rash Microbiology Date/Time Source Procedure Growth Status 12/27/17 10:25 Blood Blood Culture - Preliminary NO GROWTH AFTER 24 HOURS Resulted 12/27/17 10:15 Blood Blood Culture - Preliminary NO GROWTH AFTER 24 HOURS Resulted 12/26/17 15:00 Blood Blood Culture - Preliminary NO GROWTH AFTER 48 HOURS Resulted 12/26/17 14:45 Blood Blood Culture - Preliminary NO GROWTH AFTER 48 HOURS Resulted Laboratory Tests 12/29/17 08:50: Vancomycin Level Trough 13.2H Current Medications Medications (Trade) Dose Ordered Sig/Karen Route PRN Reason Start Time Stop Time Status Last Admin Dose Admin Acetaminophen (Tylenol) 650 mg Q4H PRN ORAL fever 12/27/17 18:30 01/26/18 06:29 Albuterol/ Ipratropium (Albuterol/ Ipratropium) 3 ml Q4H PRN HHN Shortness of Breath 12/27/17 18:30 01/01/18 06:29 12/28/17 11:50 Cefepime HCl 1 gm/ Dextrose 55 ml @ 110 mls/hr Q24H IVPB 12/28/17 09:00 01/03/18 08:59 12/29/17 08:51 Finasteride (Proscar) 5 mg DAILY ORAL 12/28/17 09:00 01/26/18 08:59 12/29/17 08:51 Heparin Sodium (Porcine) (Heparin 5000 units/ml) 5,000 units EVERY 12 HOURS SUBQ 12/27/17 21:00 01/26/18 08:59 12/29/17 08:52 Morphine Sulfate (Morphine Sulfate) 2 mg Q4H PRN IVP Moderate Pain (Pain Scale 4-6) 12/27/17 18:30 01/03/18 06:29 Nitroglycerin (Ntg) 0.4 mg Q5M PRN SL Prn Chest Pain 12/27/17 15:30 01/26/18 06:29 Olanzapine (ZyPREXA) 2.5 mg BIDPRN PRN ORAL Agitation 12/29/17 12:00 01/28/18 11:59 Ondansetron HCl (Zofran) 4 mg Q6H PRN IVP Nausea & Vomiting 12/27/17 18:30 01/26/18 06:29 Polyethylene Glycol (Miralax) 17 gm DAILYPRN PRN ORAL Constipation 12/28/17 06:30 01/26/18 06:29 Tamsulosin HCl (Flomax) 0.4 mg DAILY ORAL 12/28/17 09:00 01/26/18 08:59 12/29/17 08:51 Temazepam (Restoril) 15 mg HSPRN PRN ORAL Insomnia 12/28/17 06:30 01/03/18 06:29 Vancomycin HCl (Vanco rx to dose) 1 ea DAILY PRN MISC Per rx protocol 12/28/17 09:00 01/26/18 07:29 Vancomycin HCl 1 gm/Dextrose 275 ml @ 183.3 mls/ hr Q24H IVPB 12/28/17 10:00 01/01/18 09:59 12/29/17 10:04 Priya Monzon MD Dec 29, 2017 14:34
[2017-12-29 16:00] VITALS: BP 156/84
[2017-12-29] MEDS: [UNRECOGNIZED DRUG - OTHER] ORAL SCH ×2 (18:51→20:48)
--- NOTE | 2017-12-29 19:42 | Consultation ---
Consult Note Consult Note [id number] Олег Bhardwaj MD Dec 29, 2017 19:42
[2017-12-29 20:00] VITALS: BP 114/66
--- NOTE | 2017-12-29 22:46 | General Progress Note ---
Assessment/Plan Assessment/Plan dementia with behavioral dist zyprexa 2.5mg bid/prn provided ro Subjective Date patient seen: Dec 29, 2017 Neurologic/Psychiatric: Reports: anxiety, emotional problems Allergies: Coded Allergies: No Known Allergies (Unverified , 12/26/17) Objective Last 24 Hour Vital Signs Date Time Temp Pulse Resp B/P (MAP) Pulse Ox O2 Delivery O2 Flow Rate FiO2 12/29/17 20:00 97.6 106 20 114/66 97 Room Air 97.6 12/29/17 20:00 102 18 Room Air 21 12/29/17 16:00 97.8 82 20 156/84 98 97.8 12/29/17 12:00 98.2 89 20 144/80 98 98.2 12/29/17 09:00 98.0 102 20 121/69 96 98.0 12/29/17 08:10 79 18 Room Air 21 12/29/17 04:00 98.5 99 19 118/66 97 Room Air 98.5 12/29/17 00:00 98.6 95 19 127/70 96 Room Air 98.6 Intake and Output 12/28/17 12/29/17 19:00 07:00 Intake Total 120 ml Balance 120 ml Intake Oral 120 ml # Voids 4 2 # Bowel Movements 1 Laboratory Tests 12/29/17 08:50: Vancomycin Level Trough 13.2H Height (Feet): 5 Height (Inches): 5.00 Weight (Pounds): 140 Lay Maxwell M.D. Dec 29, 2017 22:46
[2017-12-30] VITALS: BP 142/61
--- NOTE | 2017-12-30 | Consultation ---
DATE OF CONSULTATION: 12/29/2017 INFECTIOUS DISEASE CONSULTATION CONSULTING PHYSICIAN: Олег Bhardwaj M.D. REFERRING PHYSICIAN: Priya Monzon M.D. REASON FOR CONSULTATION: Evaluation of the patient for fever, possible sepsis, and antibiotic management. HISTORY OF PRESENT ILLNESS: The patient is an 82-year-old male with multiple medical problems as listed below, who was going to a Radiology for getting an MRI and suddenly, the patient felt weak. Prior to that, the patient also felt feverish. The patient was brought to the hospital and an Infectious Disease consultation has been requested for evaluation of the patient for possible need for antibiotic treatment. PAST MEDICAL HISTORY: 1. Asthma. 2. Hypertension. 3. History of throat cancer diagnosed in August of 2017, on radiation. 4. History of prostate cancer. 5. Ex-smoker. MEDICATION: IV vancomycin and cefepime. ALLERGIES: No known drug allergies. SOCIAL HISTORY: The patient is an ex-smoker, quit smoking 11 years ago. FAMILY HISTORY: Not contributing. REVIEW OF SYSTEMS: HEENT: No recent change in vision or hearing. PULMONARY: No cough. CARDIOVASCULAR: No chest pain or palpitation. GASTROINTESTINAL/ABDOMEN: No nausea or vomiting. GENITOURINARY: No dysuria. MUSCULOSKELETAL: No pain in extremity. PHYSICAL EXAMINATION: VITAL SIGNS: Temperature 97.8, blood pressure 156/84, respiratory rate 18, and pulse 80. HEENT: No pale conjunctivae. No icterus. NECK: Supple. CHEST: Clear. HEART: S1 and S2. ABDOMEN: Soft and nontender. EXTREMITY: No cyanosis. NEUROLOGIC: Awake. LABORATORY DATA: White blood cells 5.6, hemoglobin 9.4, and platelet 296,000. UA unremarkable. BUN 32 and creatinine 1.9. ALT, AST, and alkaline phosphatase are unremarkable. Blood culture is pending. Chest x-ray, [facility]. ASSESSMENT: The patient is an 82-year-old male with multiple medical problems as listed above, who had, 1. Subjective fever. 2. Normal white blood cells. 3. Rule out bacteremia. 4. No evidence of pneumonia or urinary tract infection by history and exam. PLAN: 1. We will continue the patient on vancomycin and cefepime empirically for now. 2. Monitor CBC. 3. Monitor BMP. 4. Monitor cultures. 5. Monitor chest x-ray. 6. We will check CRP. 7. If the patient's stays stable and afebrile, who may stop antibiotics soon. Thank you, Dr. Monzon, for allowing me to participate in the care of this patient. I will follow the patient with you during this hospitalization. Олег Bhardwaj M.D. DR: SHERWIN JOB#: [id number] CC:
[2017-12-30 04:00] VITALS: BP 157/81
[2017-12-30 08:00] VITALS: BP 157/90
[2017-12-30] MEDS: Tamsulosin 0.4mg cap ORAL SCH (09:00)
[2017-12-30] MEDS: [UNRECOGNIZED DRUG - OTHER] ORAL SCH ×4 (09:00→17:17)
[2017-12-30] MEDS: Heparin 5000 units/ml inj SUBQ SCH (09:00)
[2017-12-30] MEDS: Cefepime HCl 1 GM in D5W 55 ML IVPB SCH (09:57)
[2017-12-30] MEDS: Vancomycin 1 GM in D5W 275 ML IVPB SCH (10:00)
--- NOTE | 2017-12-30 11:17 | Infectious Diseases Prog Note ---
Assessment/Plan Assessment/Plan ASSESSMENT: The patient is an 82-year-old male with Subjective fever. Normal white blood cells. Rule out bacteremia. No evidence of pneumonia or urinary tract infection by history and exam. Chest x-ray, [facility] CRP 0.4 Asthma. Hypertension. History of throat cancer diagnosed in August of 2017, SP radiation. Rx History of prostate cancer. Ex-smoker. PLAN: DC vancomycin and cefepime d# 2 Monitor CBC. Monitor BMP. Monitor cultures. Monitor chest x-ray. Subjective Allergies: Coded Allergies: No Known Allergies (Unverified , 12/26/17) Subjective afebrile Objective Vital Signs Last 24 Hour Vital Signs Date Time Temp Pulse Resp B/P (MAP) Pulse Ox O2 Delivery O2 Flow Rate FiO2 12/30/17 08:00 97.3 86 18 157/90 97 97.3 12/30/17 04:00 83 20 157/81 99 12/30/17 00:00 97.7 86 20 142/61 97 Room Air 97.7 12/29/17 20:00 97.6 106 20 114/66 97 Room Air 97.6 12/29/17 20:00 102 18 Room Air 21 12/29/17 16:00 97.8 82 20 156/84 98 97.8 12/29/17 12:00 98.2 89 20 144/80 98 98.2 Height (Feet): 5 Height (Inches): 5.00 Weight (Pounds): 140 HEENT: mucous membranes moist Respiratory/Chest: normal breath sounds Cardiovascular: regularly irregular Abdomen: non distended Microbiology Date/Time Source Procedure Growth Status 12/28/17 07:30 Indwelling Cath Urine Culture - Preliminary NO GROWTH Resulted Laboratory Tests Test 12/30/17 05:30 C-Reactive Protein, Quantitative < 0.4 mg/dL (0.00-0.90) Current Medications Medications (Trade) Dose Ordered Sig/Karen Route PRN Reason Start Time Stop Time Status Last Admin Dose Admin Acetaminophen (Tylenol) 650 mg Q4H PRN ORAL fever 12/27/17 18:30 01/26/18 06:29 Albuterol/ Ipratropium (Albuterol/ Ipratropium) 3 ml Q4H PRN HHN Shortness of Breath 12/27/17 18:30 01/01/18 06:29 12/28/17 11:50 Cefepime HCl 1 gm/ Dextrose 55 ml @ 110 mls/hr Q24H IVPB 12/28/17 09:00 01/03/18 08:59 12/30/17 09:57 Finasteride (Proscar) 5 mg DAILY ORAL 12/28/17 09:00 01/26/18 08:59 12/29/17 08:51 Heparin Sodium (Porcine) (Heparin 5000 units/ml) 5,000 units EVERY 12 HOURS SUBQ 12/27/17 21:00 01/26/18 08:59 12/29/17 20:49 Morphine Sulfate (Morphine Sulfate) 2 mg Q4H PRN IVP Moderate Pain (Pain Scale 4-6) 12/27/17 18:30 01/03/18 06:29 Nitroglycerin (Ntg) 0.4 mg Q5M PRN SL Prn Chest Pain 12/27/17 15:30 01/26/18 06:29 Olanzapine (ZyPREXA) 2.5 mg BIDPRN PRN ORAL Agitation 12/29/17 12:00 01/28/18 11:59 Ondansetron HCl (Zofran) 4 mg Q6H PRN IVP Nausea & Vomiting 12/27/17 18:30 01/26/18 06:29 Polyethylene Glycol (Miralax) 17 gm DAILYPRN PRN ORAL Constipation 12/28/17 06:30 01/26/18 06:29 Tamsulosin HCl (Flomax) 0.4 mg DAILY ORAL 12/28/17 09:00 01/26/18 08:59 12/29/17 08:51 Temazepam (Restoril) 15 mg HSPRN PRN ORAL Insomnia 12/28/17 06:30 01/03/18 06:29 Vancomycin HCl (Vanco rx to dose) 1 ea DAILY PRN MISC Per rx protocol 12/28/17 09:00 01/26/18 07:29 Vancomycin HCl 1 gm/Dextrose 275 ml @ 183.3 mls/ hr Q24H IVPB 12/28/17 10:00 01/01/18 09:59 12/29/17 10:04 Олег Bhardwaj MD Dec 30, 2017 11:17
[2017-12-30 12:00] VITALS: BP 149/88
--- NOTE | 2017-12-30 13:22 | General Progress Note ---
Assessment/Plan Assessment/Plan dementia with behavioral dist zyprexa 2.5mg bid/prn provided ro Subjective Date patient seen: Dec 30, 2017 Allergies: Coded Allergies: No Known Allergies (Unverified , 12/26/17) Subjective the pt is the same calm no episodes Objective Last 24 Hour Vital Signs Date Time Temp Pulse Resp B/P (MAP) Pulse Ox O2 Delivery O2 Flow Rate FiO2 12/30/17 12:00 98.0 82 18 149/88 98 98.0 12/30/17 08:00 97.3 86 18 157/90 97 97.3 12/30/17 04:00 83 20 157/81 99 12/30/17 00:00 97.7 86 20 142/61 97 Room Air 97.7 12/29/17 20:00 97.6 106 20 114/66 97 Room Air 97.6 12/29/17 20:00 102 18 Room Air 21 12/29/17 16:00 97.8 82 20 156/84 98 97.8 Intake and Output 12/29/17 12/30/17 19:00 07:00 Intake Total 896.6 ml Output Total 400 ml Balance 496.6 ml Intake Oral 420 ml IV Total 476.6 ml Output Urine Total 400 ml # Voids 4 Laboratory Tests 12/30/17 05:30: C-Reactive Protein, Quantitative < 0.4 Height (Feet): 5 Height (Inches): 5.00 Weight (Pounds): 140 Lay Maxwell M.D. Dec 30, 2017 13:22
--- NOTE | 2017-12-30 14:57 | Pulmonology Progress Note ---
Assessment/Plan Problems: (1) Sepsis (2) COPD (chronic obstructive pulmonary disease) (3) Throat cancer (4) Asthma exacerbation Assessment/Plan check cultures, all negative sputum for c/s all cultures are so far negative Swallow study noted ENT note appreciated symptomatic treatment all meds and labs reviewed dc home Subjective ROS Limited/Unobtainable: No Constitutional: Reports: no symptoms HEENT: Repors: no symptoms Respiratory: Reports: no symptoms Allergies: Coded Allergies: No Known Allergies (Unverified , 12/26/17) Objective Last 24 Hour Vital Signs Date Time Temp Pulse Resp B/P (MAP) Pulse Ox O2 Delivery O2 Flow Rate FiO2 12/30/17 12:00 98.0 82 18 149/88 98 98.0 12/30/17 08:00 97.3 86 18 157/90 97 97.3 12/30/17 04:00 83 20 157/81 99 12/30/17 00:00 97.7 86 20 142/61 97 Room Air 97.7 12/29/17 20:00 97.6 106 20 114/66 97 Room Air 97.6 12/29/17 20:00 102 18 Room Air 21 12/29/17 16:00 97.8 82 20 156/84 98 97.8 Intake and Output 12/29/17 12/30/17 19:00 07:00 Intake Total 896.6 ml Output Total 400 ml Balance 496.6 ml Intake Oral 420 ml IV Total 476.6 ml Output Urine Total 400 ml # Voids 4 Objective General Appearance: cachectic HEENT: normocephalic, atraumatic Respiratory/Chest: chest wall non-tender, lungs clear Cardiovascular: normal peripheral pulses, normal rate, regular rhythm Abdomen: normal bowel sounds, soft, non tender Genitourinary: normal external genitalia Extremities: no cyanosis Skin: no rash Microbiology Date/Time Source Procedure Growth Status 12/28/17 07:30 Indwelling Cath Urine Culture - Preliminary NO GROWTH Resulted Laboratory Tests 12/30/17 05:30: C-Reactive Protein, Quantitative < 0.4 Current Medications Medications (Trade) Dose Ordered Sig/Karen Route PRN Reason Start Time Stop Time Status Last Admin Dose Admin Acetaminophen (Tylenol) 650 mg Q4H PRN ORAL fever 12/27/17 18:30 01/26/18 06:29 Albuterol/ Ipratropium (Albuterol/ Ipratropium) 3 ml Q4H PRN HHN Shortness of Breath 12/27/17 18:30 01/01/18 06:29 12/28/17 11:50 Finasteride (Proscar) 5 mg DAILY ORAL 12/28/17 09:00 01/26/18 08:59 12/29/17 08:51 Heparin Sodium (Porcine) (Heparin 5000 units/ml) 5,000 units EVERY 12 HOURS SUBQ 12/27/17 21:00 01/26/18 08:59 12/29/17 20:49 Morphine Sulfate (Morphine Sulfate) 2 mg Q4H PRN IVP Moderate Pain (Pain Scale 4-6) 12/27/17 18:30 01/03/18 06:29 Nitroglycerin (Ntg) 0.4 mg Q5M PRN SL Prn Chest Pain 12/27/17 15:30 01/26/18 06:29 Olanzapine (ZyPREXA) 2.5 mg BIDPRN PRN ORAL Agitation 12/29/17 12:00 01/28/18 11:59 Ondansetron HCl (Zofran) 4 mg Q6H PRN IVP Nausea & Vomiting 12/27/17 18:30 01/26/18 06:29 Polyethylene Glycol (Miralax) 17 gm DAILYPRN PRN ORAL Constipation 12/28/17 06:30 01/26/18 06:29 Tamsulosin HCl (Flomax) 0.4 mg DAILY ORAL 12/28/17 09:00 01/26/18 08:59 12/29/17 08:51 Temazepam (Restoril) 15 mg HSPRN PRN ORAL Insomnia 12/28/17 06:30 01/03/18 06:29 Priya Monzon MD Dec 30, 2017 14:57
[2017-12-30 16:00] VITALS: BP 149/84
--- NOTE | 2017-12-30 16:07 | Pre-Procedure Note/Attestation ---
Pre-Procedure Note/Attestation Complete Prior to Procedure Planned Procedure: not applicable Procedure Narrative: Fiberoptic laryngoscopy Indications for Procedure Pre-Operative Diagnosis: H/N cancer-unknown type Attestation I attest that I discussed the nature of the procedure; its benefits; risks and complications; and alternatives (and the risks and benefits of such alternatives ), prior to the procedure, with the patient (or the patient's legal healthcare sales representative). I attest that, if there was a reasonable possibility of needing a blood transfusion, the patient (or the patient's legal healthcare sales representative) was given the [facility] standardized written summary, pursuant to the Nestor Natan Blood Safety Act ([place] Health and Safety Code # 1645, as amended). I attest that I re-evaluated the patient just prior to the surgery and that there has been no change in the patient's H&P. BILL ROBLERO Dec 30, 2017 16:07
--- NOTE | 2017-12-30 16:09 | Brief Operative Note ---
Immediate Post Operative Note Operative Note Chief Complaint: dysphagia Pre-op Diagnosis: H/N cancer-unknown type Procedure: Fiberoptic laryngoscopy Post-op Diagnosis: swelling supraglottis Surgeon: Bill Roblero Package Liner: none Additional Surgeons: none Anesthesiologist: none Anesthesia: other - none Specimen: none Complications: none Condition: stable Fluids: none Estimated Blood Loss: volume - 0cc Packing: none Implant(s) used?: No BILL ROBLERO Dec 30, 2017 16:09
[2017-12-30] MEDS ORDERED: Tubing IV Secondary IV ONE (19:01)
[2017-12-30] MEDS ORDERED: NS 500ML ONE (19:01)
--- NOTE | 2017-12-31 02:45 | Operative Note - Dictated ---
DATE OF OPERATION: 12/30/2017 SURGEON: Mino Zhu M.D. MATERIAL MAN: Remedios, both nurses on the floor. ANESTHESIA: None. INDICATION FOR PROCEDURE: The patient with an unknown history of recent head and neck cancer and radiation therapy, four sessions. He then had a voice and then developed some wheezing. He thinks he can lie down and sit in bed comfortably, just hard to swallow. PREOPERATIVE DIAGNOSIS: Swelling, supraglottis. POSTOPERATIVE DIAGNOSIS: Swelling, supraglottis with possible fungal ball. FINDINGS: As above, although he does have a decent airway at the moment. PROCEDURE: Fiberoptic laryngoscopy technique. Time-out was performed. All agreed and consent had been signed. Scope was placed through the right nostril without difficulty. We all were able to visualize the back of the nose, epiglottis, and vocal cords. There was an anterior white fungus ball appearing like mass, but there was an airway and the patient is breathing comfortably, although he did not have a great voice. The scope was removed. ESTIMATED BLOOD LOSS: Zero. COUNTS: None. DRAINS: Zero. SPONGE AND NEEDLE COUNT: Correct, which there were none. Additional note, this patient came without any records beyond that he is being treated for head and neck type of cancer. He is a [facility] preferred IPA patient, which is not covered at this hospital. I did speak with his primary care doctor, who basically knew he had neck cancer, but knew nothing about him since May, Dr. Rutherford. 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 We are having difficulty getting medical information regarding him. It would be better for his care if he is with his doctors who already understand his history. The family wants to transfer their care. They need to let us know that I am not an [facility] physician, and therefore, would not be seeing the patient in the future unless there is an emergency. Thank you very much for asking my opinion in the care and treatment of this patient. Mino Zhu M.D. DR: DONALD JOB#: [id number] CC: VASQUEZ
--- NOTE | 2017-12-31 09:23 | Discharge Summary ---
Discharge Summary Discharge Summary Discharge Summary DATE OF ADMISSION: 12/26/2017 DATE OF DISCHARGE: 2017 REASON FOR ADMISSION: 82 years old male with past medical history significant for COPD, asthma, hypertension, throat cancer diagnosed in August 2017, status post radiation, ex-smoker, history of prostate cancer, presented to emergency department with dizziness, generalized weakness, low blood pressure and shortness of breath. According to the daughter, patient became acutely ill prior to presentation. He was supposed to get MRI to evaluate his throat but suddenly became weak and was unable to get out of the chair. He did not have a syncopal episode or loss of consciousness. Paramedics noted low blood pressure 80/40 which improved with the 500 mL of normal saline bolus. Patient with a mild chronic throat pain secondary to throat cancer. Patient with chronic dysphagia however was able to eat and drink. Chest x-ray revealed no acute cardiopulmonary pathology. EKG revealed sinus tachycardia, no acute ischemic changes. Blood pressure - 83/52 , heart rate 110. BUN- 30 creatinine -d 2.1. Urinalysis was negative for evidence of UTI. Troponin negative. No leukocytosis. Ib emergency department, patient was given nebulizing treatment with bronchodilators, placed on supplemental oxygen, and given additional bolus of fluid. was Patient was admitted for further management with diagnosis of generalized weakness COPD/asthma exacerbation, throat cancer CONSULTANTS: ID specialist Dr. Bhardwaj psychiatrist ENT specialist Dr. Zhu [facility]: Patient admitted. Patient started on the IV fluids. ID consult was requested. Patient had no leukocytosis. Patient initially was placed on empiric antibiotics. Follow-up chest x-ray revealed no evidence of acute cardiopulmonary pathology, urine and blood culture were negative, afebrile, no leukocytosis, no evidence of infection . Antibiotics were stopped. ENT consult was requested. Patient subsequently undergone fiberoptic laryngoscopy due to the supraglottis edema. ENT specialist recommended to follow-up with doctors at [facility] where his gas meter repairer/oncologist as well as other doctors located. . Supplemental oxygen and pulmonary toilet provided as needed. Patient received IV steroids. Prior to discharge pulse oximetry stable on room air. No further wheezing. Bedside and video-swallowing evaluations were done. Patient had a high risk for silent aspiration. Diet was provided as per speech therapist recommendation with strict aspiration reflux precautions. Proscar and Flomax were continued. Symptomatic treatment provided. Bowel regimen instituted. DVT prophylaxis provided. Pain management was addressed as needed. Psychiatrist seen and evaluated the patient and diagnosed the patient with dementia with behavioral disturbances. Patient was started on Zyprexa, reality orientation provided. Blood pressure stabilized. No further wheezing. Pulse oximetry stable on room air. Patient was stable for discharge home. FINAL DIAGNOSES: Asthma exacerbation COPD Ex-smoker Dysphagia Supraglottis edema s/p fiberoptic laryngoscopy History of prostate cancer Dementia with behavioral disturbances DISCHARGE MEDICATIONS: See Medication Reconciliation list. DISCHARGE INSTRUCTIONS: Patient was discharged home. Follow up with primary care provider. Follow-up with doctors at [facility]. I have been assigned to dictate discharge summary for this account. I was not involved in the patient's management. Kay Botello NP ([place]) Dec 31, 2017 09:22
== END 2017-12-30 19:02 | disposition home or self-care (01) | DRG 141 ==
LOC: EDBD 14:39 → EMR 14:52 → 2E 23:50 → EDBEDREQ 12-27 00:31 → 2E 12-27 01:21 → 4E 12-27 15:10
PROC: 0CJS8ZZ Inspection of Larynx, Via Natural or Artificial Opening Endoscopic (ICD-10-PCS; principal; 2017-12-30)
DX: J45.901 Unspecified asthma with (acute) exacerbation (principal); J38.4 Edema of larynx; F03.91 Unspecified dementia, unspecified severity, with behavioral disturbance; J44.9 Chronic obstructive pulmonary disease, unspecified; R13.10 Dysphagia, unspecified; C14.0 Malignant neoplasm of pharynx, unspecified; E86.0 Dehydration; N28.9 Disorder of kidney and ureter, unspecified; I10 Essential (primary) hypertension; R53.1 Weakness; Z85.46 Personal history of malignant neoplasm of prostate; Z92.3 Personal history of irradiation; Z87.891 Personal history of nicotine dependence
CPT/HCPCS: 36415; 71045; 74230; 80053; 80202; 81001; 81003; 82962; 83605; 83880; 84484; 85025; 85610; 85730; 86140; 87040; 87086; 93005; 94640; 94664; 99291; J7620